=== PATIENT | female | born 1950 | race American Indian/Alaskan Native ===

== ENCOUNTER 2019-01-31 10:57 | Day surgery (SDC) | payer MEDICARE ==
[~2019-01-31 10:57] MED LIST: IOPIDINE ONE; MYDRIACYL ONE; NEOFRIN ONE
[2019-01-31 11:25] VITALS: BP 190/89
[2019-01-31] MEDS ORDERED: IOPIDINE OD ONE ×2 (11:27→12:12)
[2019-01-31] MEDS ORDERED: MYDRIACYL OD ONE (11:27)
[2019-01-31] MEDS ORDERED: NEOFRIN OD ONE (11:27)
== END 2019-01-31 12:27 | disposition home or self-care (01) ==
LOC: OR 10:57
PROVIDERS: ATTEND Specialist
DX: H26.491 Other secondary cataract, right eye (principal); I10 Essential (primary) hypertension; M19.90 Unspecified osteoarthritis, unspecified site; F32.9 Major depressive disorder, single episode, unspecified; F41.9 Anxiety disorder, unspecified; H40.9 Unspecified glaucoma; Z79.899 Other long term (current) drug therapy; Z79.82 Long term (current) use of aspirin; F17.210 Nicotine dependence, cigarettes, uncomplicated; Z98.41 Cataract extraction status, right eye; Z98.42 Cataract extraction status, left eye; Z90.721 Acquired absence of ovaries, unilateral; Z98.890 Other specified postprocedural states

== ENCOUNTER 2019-02-07 11:07 | Day surgery (SDC) | payer MEDICARE ==
[2019-02-07] MEDS ORDERED: MYDRIACYL OS ONE (11:31)
[2019-02-07] MEDS ORDERED: NEOFRIN OS ONE (11:31)
[2019-02-07] MEDS ORDERED: IOPIDINE OS ONE ×2 (11:31→12:35)
[2019-02-07 12:55] VITALS: BP 196/100
== END 2019-02-07 12:37 | disposition home or self-care (01) ==
LOC: OR 11:07
PROVIDERS: ATTEND Specialist
DX: H26.492 Other secondary cataract, left eye (principal); I10 Essential (primary) hypertension; M19.90 Unspecified osteoarthritis, unspecified site; F32.9 Major depressive disorder, single episode, unspecified; F41.9 Anxiety disorder, unspecified; H40.9 Unspecified glaucoma; F17.210 Nicotine dependence, cigarettes, uncomplicated; Z79.899 Other long term (current) drug therapy; Z79.82 Long term (current) use of aspirin; Z98.41 Cataract extraction status, right eye; Z98.42 Cataract extraction status, left eye; Z98.890 Other specified postprocedural states; Z90.721 Acquired absence of ovaries, unilateral